=== PATIENT | female | born 1955 | race Caucasian/White ===

== ENCOUNTER 2017-12-30 15:22 | Emergency (ER) | payer OTHER ==
[~2017-12-30] VITALS: Ht 154.9 cm; Wt 70.3 kg
--- NOTE | 2017-12-30 15:22 | NUR ---
PATIENT BIBA TO BED 2.
[2017-12-30 15:27] VITALS: BP 143/71
--- NOTE | 2017-12-30 15:36 | NUR ---
PT 59 YO FEMALE BIB EMS FROM FIELD FOR FALL WITH LEFT ELBOW ABRASION AND LEFT SHOULDER PAIN. 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 PATIENT STATES PAIN OF 5/10 AT THIS TIME; VSS; PATIENT POSITIONED FOR COMFORT; HOB ELEVATED; BEDRAILS UP X2; BED DOWN. ER MD MADE AWARE OF PT STATUS.
[2017-12-30] MEDS ORDERED: MECLIZINE 25 MG TAB PO ONE (16:50)
[2017-12-30] MEDS ORDERED: ONDANSETRON 4 MG ODT PO ONE (16:50)
[2017-12-30 17:48] VITALS: BP 143/71
--- NOTE | 2017-12-30 17:49 | NUR ---
Patient discharged with v/s stable. Written and verbal after care instructions given and explained. Patient alert, oriented and verbalized understanding of instructions. Ambulatory with steady gait. All questions addressed prior to discharge. ID band removed. Patient advised to follow up with PMD. Rx of MECLIZINE AND ZOFRAN given. Patient educated on indication of medication including possible reaction and side effects. Opportunity to ask questions provided and answered.
== END 2017-12-30 17:49 | disposition home or self-care (01) ==
LOC: MED 15:22 → EDBD 15:22 → MED 17:49
DX: S70.02XA Contusion of left hip, initial encounter (principal); S50.312A Abrasion of left elbow, initial encounter; R42 Dizziness and giddiness; J45.909 Unspecified asthma, uncomplicated; Z48.89 Encounter for other specified surgical aftercare; W01.10XA Fall on same level from slipping, tripping and stumbling with subsequent striking against unspecified object, initial encounter; Y93.89 Activity, other specified; Y92.89 Other specified places as the place of occurrence of the external cause; Y99.8 Other external cause status
CPT/HCPCS: 90471; 90715; 93005; 99283; J8597; S0119